=== PATIENT | male | born 1990 | race Caucasian/White ===

== ENCOUNTER 2019-10-05 13:57 | Emergency (ER) | payer OTHER ==
[~2019-10-05] VITALS: Ht 175.3 cm; Wt 76.2 kg
[~2019-10-05 13:57] MED LIST: AMOXIL500 MG PO; ULTRAM50 MG PO
== END 2019-10-05 19:35 | disposition home or self-care (01) ==
LOC: ER 13:57
DX: J11.1 Influenza due to unidentified influenza virus with other respiratory manifestations (principal)

== ENCOUNTER 2021-11-06 01:45 | Emergency (ER) | payer OTHER ==
[~2021-11-06] VITALS: Ht 175.3 cm; Wt 78.0 kg
[2021-11-06] MEDS ORDERED: NORFLEX100MG PO (04:06)
[2021-11-06] MEDS ORDERED: MEDROLPACK PO (04:06)
== END 2021-11-06 04:40 | disposition home or self-care (01) ==
LOC: ER 01:45
DX: R51.9 Headache, unspecified (principal); M54.2 Cervicalgia

== ENCOUNTER 2021-11-07 20:43 | Emergency (ER) | payer OTHER ==
[~2021-11-07] VITALS: Ht 175.3 cm; Wt 78.0 kg
[~2021-11-07 20:43] MED LIST changes: +MEDROLPACK PO; +NORFLEX100MG PO
== END 2021-11-08 03:22 | disposition home or self-care (01) ==
LOC: ER 20:43
DX: R07.89 Other chest pain (principal); Z88.6 Allergy status to analgesic agent